=== PATIENT | male | born 1955 | race African-American/Black ===

== ENCOUNTER 2017-01-24 15:24 | Inpatient (IN) | payer OTHER ==
[~2017-01-24] VITALS: Ht 180.3 cm; Wt 129.2 kg
[2017-01-24] MEDS ORDERED: METF500T PO (16:00)
[2017-01-24] MEDS ORDERED: FLUT1SPR5 EACH NARE (16:00)
[2017-01-24] MEDS ORDERED: DIFL500T PO (16:00)
[2017-01-24] MEDS ORDERED: GABA300C5 PO (16:00)
[2017-01-24] MEDS ORDERED: LATA0.002 EACH EYE (16:00)
[2017-01-24] MEDS ORDERED: HYDR-3583 PO (16:00)
[2017-01-24] MEDS ORDERED: VITA2000 PO (16:00)
[2017-01-24] MEDS ORDERED: FURO20TA PO (16:00)
[2017-01-24] MEDS ORDERED: TRAD5TAB PO (16:00)
[2017-01-24] MEDS ORDERED: ALLO300T2 PO (16:00)
[2017-01-24] MEDS ORDERED: METH8TAB3 PO (16:00)
[2017-01-25] MEDS ORDERED: BUPIVACAINE LIPOSOME PF 1.3% 20 ML VIAL ONE (08:29)
[2017-01-25] MEDS ORDERED: POVIDONE IODINE 5% (ANTISEPSIS KIT) 4 APPLICATIONS EACH NARE PRN (08:30)
[2017-01-25] MEDS ORDERED: LACTATED RINGER'S 1000 ML IV PRN (08:30)
[2017-01-25] MEDS ORDERED: SODIUM CHLORID 0.9% 500 ML IV PRN (08:30)
[2017-01-25] MEDS ORDERED: CHLORHEXIDINE GLUCONATE 2 % 1 PACK (2 CLOTHS) TOPICAL PRN (08:30)
[2017-01-25] MEDS ORDERED: INSULIN HUMAN REGULAR 1,000 UNITS/10 ML VIAL SQ PRN (08:30)
[2017-01-25] MEDS ORDERED: METOPROLOL TARTRATE 25 MG TAB PO PRN (08:30)
[2017-01-25] MEDS ORDERED: PANT40TA3 PO (08:38)
[2017-01-25] MEDS ORDERED: EMPA1TAB PO (08:38)
[2017-01-25] MEDS ORDERED: ATOR40TA16 PO (08:38)
[2017-01-25] MEDS ORDERED: ALBI1INJ SQ (08:38)
[2017-01-25] MEDS ORDERED: TIMO0.5S30 LEFT EYE (08:38)
[2017-01-25] MEDS ORDERED: TAMS0.4C4 PO (08:41)
[2017-01-25] MEDS ORDERED: MONT10TA2 PO (08:41)
[2017-01-25] MEDS ORDERED: CARV3.12 PO (08:41)
[2017-01-25] MEDS ORDERED: ASPI325T PO ×2 (08:41→13:55)
[2017-01-25] MEDS ORDERED: DEXAMETHASONE SOD PHOS 20 MG/5 ML VIAL IV SCH (08:45)
[2017-01-25] MEDS ORDERED: POVIDONE IODINE 7.5% SCRUB 118 ML BOTTLE TOPICAL SCH (08:45)
[2017-01-25] MEDS ORDERED: ceFAZolin 2 GM PREMIX 50 ML IV SCH (08:45)
[2017-01-25] MEDS ORDERED: VANCOMYCIN 1000 MG/NS 250 ML (for <70 kg) IV SCH ×2 (08:45)
[2017-01-25] MEDS ORDERED: TRANEXAMIC ACID IV SCH ×2 (08:45→14:00)
[2017-01-25] MEDS ORDERED: ROPIVACAINE PERI-ARTICULAR INJECTION. P-ARTICULR SCH ×5 (08:45)
[2017-01-25] MEDS ORDERED: SODIUM CHLORIDE 0.9% IV SCH ×2 (08:45→14:00)
[2017-01-25 08:50] VITALS: BP 151/77; PULSE 69; RESP 20; TEMP 98.7; O2SAT 96
[2017-01-25] MEDS ORDERED: GENTAMICIN SULFATE 80 MG/2 ML VIAL ONE (10:19)
[2017-01-25] MEDS ORDERED: MIDAZOLAM HCL 2 MG/2 ML VIAL ONE (11:21)
[2017-01-25] MEDS ORDERED: FAMOTIDINE 20 MG/2 ML VIAL ONE (11:21)
[2017-01-25] MEDS ORDERED: METOCLOPRAMIDE HCL 10 MG/2 ML VIAL ONE (11:21)
[2017-01-25] MEDS ORDERED: PROPOFOL 200 MG/20 ML AMP IV ONE (13:15)
[2017-01-25] MEDS ORDERED: LACTATED RINGER'S 1000 ML INJ 2,000 ML IV ONE (13:16)
[2017-01-25] MEDS ORDERED: ONDANSETRON HCL 4 MG/2 ML VIAL IV PUSH ONE (13:16)
--- NOTE | 2017-01-25 13:53 | PD.OP ---
cc: Jose Montana MD Operative Report Date of Surgery: Jan 25, 2017 Preoperative Diagnosis: Right knee severe osteoarthritis Postoperative Diagnosis: Same Procedure: Right total knee arthroplasty Anesthesia: Adductor canal block and general Surgeon: Jose Montana Regulatory Affairs Manager(s): VAHID Roman The surgical procedure was assisted by my Advanced Registered Nurse Practitioner. My WAITER/WAITRESS TOURIST CLASS presence was necessary throughout this case for the manipulation and positioning of the surgical extremity. My WAITER/WAITRESS TOURIST CLASS was assisting me throughout the duration of this procedure. The skill set of an Advance Registered Nurse Practitioner was medically necessary to complete this procedure. During the surgical case, the surgical orderly was working at the back table and the Advance Registered Nurse Practitioner was directly assisting me. Operation and Findings: IMPLANTS: DePuy Attune: Patella: size 38. Femur, posterior stabilized size 9. Tibia, rotating platform size 7. Tibial insert, rotating platform, posterior stabilized size 7 mm thickness. ESTIMATED BLOOD LOSS: 150 cc TOURNIQUET TIME: 53 minutes at 250 mmHg pressure. JUSTIFICATION FOR PROCEDURE: The patient has end-stage osteoarthritis to the knee. There is an attached conservative measures pathway form in the chart that describes the nonoperative measures that were undertaken prior to consideration of surgical management. The patient understood the risks and benefits of surgical management. See my office notes for further details PROCEDURE: The patient was brought back to the operative theatre. Adequate anesthesia was obtained. The patient received intravenous vancomycin and Ancef. The lower extremity was prepped and draped in the usual sterile fashion.The leg was exsanguinated, the tourniquet was raised. A standard anterior incision was performed followed by medial parapatellar arthrotomy was performed. End-stage arthritis was identified. Osteotomy of the patella was performed. We drilled holes for the patella. We trialed the patella component. We placed an intramedullary guide into the distal femur. We ultimately resected 14 mm off of the distal femur in 5 degrees of valgus. The remnants of the ACL and PCL were resected. Osteotomy of the proximal tibia was performed, resecting 8 mm off of the medial side. This was done with 3 degrees of posterior slope using an extramedullary guide. The distal end of the guide was placed in the mid aspect of the ankle. The femur was sized, and four chamfer cuts were completed in 3 of external rotation. We then cut the central box in the distal femur to replace the PCL. We resected the remnants of the menisci and removed osteophytes off of the femur and tibia. We then trialed the knee. We punched the tibia for the keel, and then used standard technique to cement in components. Excess cement was removed. We trialed the knee again and the final polyethylene thickness was chosen to provide extension to 0 degrees, and flexion of 140 degrees to gravity. The ligaments were appropriately balanced. Lateral release was necessary to obtain excellent patellofemoral tracking. The tourniquet was released and adequate hemostasis was obtained. An intra- articular injection of a ropivacaine cocktail was injected. The posterior knee was inspected for excess cement, which was removed. The final polyethylene was put into position after thorough irrigation. We then closed deep fascia with a #2 Stratafix followed by skin with 2-0 Vicryl followed by pravin. Postop plan is to weight-bear as tolerated. DVT prophylaxis will be performed with Juan Daniel, BRANDON whitmore, early mobilization, and Lovenox followed by aspirin. Jose Montana MD Jan 25, 2017 13:53
[2017-01-25] MEDS ORDERED: ENOX40P SQ (13:55)
[2017-01-25] MEDS ORDERED: HYDR-3366 PO (13:55)
[2017-01-25] MEDS ORDERED: DO NOT ADM ANY ANTICOAGULANT DRUGS PRN (14:00)
[2017-01-25] MEDS ORDERED: ACETAMINOPHEN/HYDROcodone 325 MG/10 MG TAB PO PRN (14:00)
[2017-01-25] MEDS ORDERED: Post-op Orders (for Pharmacy) MISC XX ONE (14:00)
[2017-01-25] MEDS ORDERED: MORPHINE SULFATE 4 MG/ML INJ IV PUSH PRN (14:00)
[2017-01-25] MEDS ORDERED: ZOLPIDEM TARTRATE 5 MG TAB PO PRN (14:00)
[2017-01-25] MEDS ORDERED: NALOXONE HCL 0.4 MG/ML AMP IV PRN (14:00)
[2017-01-25] MEDS ORDERED: BISACODYL 10 MG SUPP RECTAL PRN (14:00)
[2017-01-25] MEDS ORDERED: ALUMINUM/MAGNESIUM/SIMETH 30 ML CUP PO PRN (14:00)
[2017-01-25] MEDS ORDERED: ONDANSETRON HCL 4 MG/2 ML VIAL IVP PRN (14:00)
[2017-01-25] MEDS ORDERED: diphenhydrAMINE HCL 50 MG/ML VIAL IV PRN (14:00)
[2017-01-25] MEDS ORDERED: SODIUM CHLORIDE 0.9% FLUSH 5 ML FLUSH IVF PRN (14:00)
[2017-01-25] MEDS ORDERED: fentaNYL CITRATE 250 MCG/5 ML AMP ONE ×2 (14:22)
[2017-01-25] MEDS ORDERED: *morphine SULFATE 8 MG/ML PERIprocedure ONLY ONE ×2 (14:26→14:39)
[2017-01-25] MEDS ORDERED: *HYDROmorphone PF 1 MG VIAL PERIprocedural Use ONLY ONE ×2 (14:54→16:17)
[2017-01-25] MEDS ORDERED: LABETALOL HCL 100 MG/20 ML VIAL ONE (14:59)
[2017-01-25] MEDS: SODIUM CHLOR 0.9% 1000 ML INJ 1,000 ML IV SCH ×2 (15:15→21:41)
--- NOTE | 2017-01-25 15:22 | RADRPT ---
EXAM DATE/TIME: 01/25/2017 14:36 [facility] COMPARISON: No previous studies available for comparison. INDICATIONS : Post op right knee surgery. MEDICAL HISTORY : None. SURGICAL HISTORY : None. ENCOUNTER: Initial ACUITY: 1 day PAIN SCORE: 8/10 LOCATION: Right Knee. FINDINGS: 2 views of the knee show a total knee prosthesis in good position. Air and fluid noted within the tequila nt. No fracture or dislocation is observed. Soft tissue swelling is noted. CONCLUSION: Total knee prosthesis in good position. Geoffrey García Jr., MD on January 25, 2017 at 15:18 Board Certified Radiologist. This report was verified electronically.
--- NOTE | 2017-01-25 15:58 | PD.CONS ---
HPI Service [facility] Hospitalists Consult Requested By Dr. Jose Montana Reason for Consult Medical Management Primary Care Physician Rachel Pizarro MD Diagnoses: History of Present Illness Mr. Frazier is a pleasant 61 y/o AAM with HTN, Hyperlipidemia, atrial fibrillation , diabetes mellitus, and osteoarthritis. Pt was admitted to [facility] on 01/25/17 for elective right total knee arthroplasty with Dr. Montana. [facility] Hospitalist team was consulted to help with managing the pts chronic medical issues. He is seen post-operatively and is doing well. Vital signs are stable. Pts chronic medications were confirmed by a list his family had brought in from home. There were no specific issues reported by nursing staff or the patient. Past Family Social History Past Medical History HTN Hyperlipidemia Atrial fibrillation BPH Diabetes mellitus, type 2 Tension headaches Glaucoma Osteoarthritis Low back pain GERD MIC on CPAP Past Surgical History Open repair of left elbow lateral epicondylar extensor tendon and lateral collateral ligament on 03/18/[address] Chang. Removal of orbital fat with closure of the conjunctival wound on 12/04/[address] Mckeon Left knee revision total knee arthroplasty [place] [address] Montana Right foot bone spur removal Ankle surgery Reported Medications -Aspirin 325 Mg PO DAILY -Singulair 10 Mg PO HS -Tamsulosin 0.4 Mg PO HS -Atorvastatin 40 Mg PO DAILY -Timolol Opth Drops 0.5 % Soln 1 Drop LEFT EYE DAILY -Jardiance 10 Mg PO DAILY -Tanzeum 4-Pack Inj 30 Mg SQ Q7D -Pantoprazole 40 Mg PO DAILY -Metformin 500 Mg PO BIDPC -Latanoprost Opth Drops (Latanoprost) 0.005% Drops 1 Drop EACH EYE HS -Flonase Nasal [place] 50 Mcg EACH NARE HS -Vitamin D3 (Cholecalciferol) 2,000 Unit Cap 2,000 Units PO DAILY -Allopurinol 300 Mg PO DAILY -Furosemide 20 Mg PO DAILY -Gabapentin 300 Mg PO BID -Carvedilol 3.125 Mg PO BID -Methylprednisolone 4 Mg PO DAILY --Oxycodone-Acetaminophen 10-325 mg Tab 1 Tab PO TID PRN Allergies: Coded Allergies: Darvon (Verified Allergy, Severe, swelling, 01/25/17) Propoxyphene (Verified Allergy, Severe, rash, 01/25/17) DARVON,DARVOCET Sulfa (Verified Allergy, Severe, SWELLING, 01/25/17) Family History Sister with hx of diabetes mellitus Social History Denies any alcohol, tobacco or illicit drug use Physical Exam Vital Signs Vital Signs Date Time Temp Pulse Resp B/P Pulse Ox O2 Delivery O2 Flow Rate FiO2 01/25/17 08:50 98.7 69 20 151/77 96 Physical Exam GENERAL: This is a well-nourished, well-developed patient, in no apparent distress. HEENT: Atraumatic. Normocephalic. No temporal or scalp tenderness. No scleral icterus. Airway patent. NECK: Trachea midline, supple, nontender. CARDIO: Regular. RESP: CTA bilaterally. No wheezes, rales, or rhonchi. ABD: +BS, soft, non-tender, nondistended. EXT: Right knee bandages are c/d/i NEURO: Awake and alert. Motor and sensory grossly within normal limits. Normal speech. Laboratory Laboratory Tests Test 01/25/17 08:34 Blood Type A POSITIVE Antibody Screen NEGATIVE Imaging Last Impressions Knee X-Ray 01/25/17 1350 Signed Impressions: Service Date/Time: Monday, January 25, 2017 14:36 - CONCLUSION: Total knee prosthesis in good position. Geoffrey García Jr., MD Assessment and Plan Problem List: (1) Osteoarthritis Status: Chronic Plan: - Pt s/p right total knee arthroplasty on 01/25/[address] Montana - Post-op pain control per Ortho - PT daily - IS - Constipation precautions - DVT prophylaxis (2) Status post total right knee replacement Status: Acute Plan: - See above. (3) HTN (hypertension) Status: Chronic Plan: - We will need clarification regarding his home medications tomorrow - Pt was resumed on Coreg 3.125mg po BID (4) Diabetes Status: Chronic Plan: - Pts listed home medications on Med Rec were resumed - Accu checks (5) Atrial fibrillation Status: Chronic Plan: - Home meds continued (6) Hyperlipidemia Status: Chronic Plan: - Home meds continued Problem Qualifiers (1) Osteoarthritis: (2) Diabetes: Suzette Hoover Jan 25, 2017 15:58 Problem Qualifiers (1) Osteoarthritis: (2) Diabetes: Suzette Hoover Jan 25, 2017 15:58
--- NOTE | 2017-01-25 16:49 | HHI.DCPOC ---
Discharge Care Plan Diagnosis: (1) Status post total right knee replacement (2) Primary localized osteoarthrosis, lower leg Your Health Problems Are: Difficulty with ADL Goals to Promote Your Health * To prevent worsening of your condition and complications * To maintain your health at the optimal level Directions to Meet Your Goals Take your medications as prescribed Follow your dietary instruction Follow activity as directed Keep your appointments as scheduled Take your immunizations and boosters as scheduled If your symptoms worsen call your PCP, if no PCP go to Urgent Care Center or Emergency Room Smoking is Dangerous to Your Health. Avoid second hand smoke Call the 24-hour hour crisis hotline for domestic abuse at Tl Young Jan 25, 2017 16:49
--- NOTE | 2017-01-25 16:50 | HHI.FF ---
Face to Face Verification Diagnosis: (1) Status post total right knee replacement (2) Primary localized osteoarthrosis, lower leg Physical Therapy Gait training, Transfer training, bed to chair Knee: Total knee Right LE Weight Bearing: WB as tolerated Right LE Range of Motion: Active ROM Nursing Nursing: Rena teaching, Dressing changes Dressing Changes: Daily dressing change I have seen patient Alexander Frazier on 01/25/17. My clinical findings support the need for the requested home health care services because: Limited ability to care for self High risk of falls I certify that my clinical findings support that this patient is homebound because: Post-op weakness Unsteady gait/balance Tl Young Jan 25, 2017 16:50
[2017-01-25] MEDS ORDERED: CPMMACHINE (16:52)
[2017-01-25] MEDS ORDERED: WALKER WHEELS/F1 MIS (16:52)
[2017-01-25] MEDS ORDERED: COMMODE 3-IN-11 MIS (16:52)
[2017-01-25 17:05] VITALS: BP 172/80; PULSE 73; RESP 18; TEMP 97.5; O2SAT 96
[2017-01-25] MEDS: ACETAMINOPHEN/HYDROcodone 325 MG/10 MG TAB PO PRN ×2 (17:21→21:39)
[2017-01-25] MEDS: metFORMIN HCL 500 MG TAB PO SCH (17:21)
[2017-01-25] MEDS ORDERED: GLUCAGON 1 MG/ML VIAL OTHER PRN (17:30)
[2017-01-25] MEDS ORDERED: DEXTROSE 50% IN WATER 50 ML VIAL(D50) IV PUSH PRN (17:30)
[2017-01-25 20:00] VITALS: BP 147/69; PULSE 70; RESP 18; TEMP 97.7; O2SAT 98
[2017-01-25 20:43] VITALS: O2SAT 94
[2017-01-25] MEDS ORDERED: DIFLUNISAL 500 MG PO SCH (21:00)
[2017-01-25] MEDS: SODIUM CHLORIDE 0.9% FLUSH 5 ML FLUSH IVF SCH (21:00)
[2017-01-25] MEDS: INSULIN ASPART SUPPLEMENTAL SCALE SQ SCH (21:38)
[2017-01-25] MEDS: MAGNESIUM HYDROXIDE SUSP 30 ML CUP PO PRN (21:38)
[2017-01-25] MEDS: CARVEDILOL 3.125 MG TAB PO SCH (21:38)
[2017-01-25] MEDS: GABAPENTIN 300 MG CAP PO SCH (21:38)
[2017-01-25] MEDS: TAMSULOSIN HCL 0.4 MG CAP PO SCH (21:39)
[2017-01-25] MEDS: MONTELUKAST SODIUM 10 MG TAB PO SCH (21:39)
[2017-01-25] MEDS: LATANOPROST 0.005% OPHT SOLN 2.5 ML BTL EACH EYE SCH (21:40)
[2017-01-26] VITALS (7 sets, daily range): BP systolic 125–142; BP diastolic 61–70; PULSE 61–70; RESP 18–19; TEMP 96.3–98.1; O2SAT 93–97
[2017-01-26] MEDS: ACETAMINOPHEN/HYDROcodone 325 MG/10 MG TAB PO PRN ×5 (02:44→21:41)
[2017-01-26 06:15] LABS: HEMATOCRIT 33.8 % (39.0-51.0); MEAN CORPUSCULAR HEMOGLOBIN 30.5 PG (27.0-34.0); MEAN CORPUSCULAR HGB CONC 33.8 % (32.0-36.0); PLATELET COUNT 203 TH/MM3 (150-450); RED BLOOD COUNT 3.75 MIL/MM3 (4.50-5.90); RED CELL DISTRIBUTION WIDTH 14.4 % (11.6-17.2); REVIEW FLAG FINAL; WHITE BLOOD COUNT 11.2 TH/MM3 (4.0-11.0)
[2017-01-26] MEDS: INSULIN ASPART SUPPLEMENTAL SCALE SQ SCH ×4 (06:33→21:49)
[2017-01-26] MEDS ORDERED: DEXAMETHASONE SOD PHOS 20 MG/5 ML VIAL IV ONE (07:45)
[2017-01-26] MEDS ORDERED: EMPAGLIFLOZIN 10 MG PO SCH (09:00)
[2017-01-26] MEDS: SODIUM CHLORIDE 0.9% FLUSH 5 ML FLUSH IVF SCH ×2 (09:00→21:00)
[2017-01-26] MEDS ORDERED: LINAGLIPTIN 5 MG PO SCH (09:00)
[2017-01-26] MEDS: SODIUM CHLOR 0.9% 1000 ML INJ 1,000 ML IV SCH ×2 (09:50→19:50)
[2017-01-26] MEDS: GABAPENTIN 300 MG CAP PO SCH ×2 (09:56→21:39)
[2017-01-26] MEDS: metFORMIN HCL 500 MG TAB PO SCH ×2 (09:56→17:12)
[2017-01-26] MEDS: ALLOPURINOL 300 MG TAB PO SCH (09:56)
[2017-01-26] MEDS: TIMOLOL MALEATE 0.5% OPHT SOLN 5 ML BTL LEFT EYE SCH (09:56)
[2017-01-26] MEDS: MAGNESIUM HYDROXIDE SUSP 30 ML CUP PO PRN (09:56)
[2017-01-26] MEDS: CARVEDILOL 3.125 MG TAB PO SCH ×2 (09:56→21:40)
[2017-01-26] MEDS: FUROSEMIDE 20 MG TAB PO SCH (09:56)
[2017-01-26] MEDS: ATORVASTATIN 40 MG TAB PO SCH (09:56)
[2017-01-26] MEDS: PANTOPRAZOLE SOD 40 MG DELAYED RELEASE TAB PO SCH (09:56)
--- NOTE | 2017-01-26 12:20 | PD.ORT.PN ---
Subjective Post Op Day #: 1 Subjective Remarks Patient OOB resting comfortably in chair with mild pain to the right thigh and knee. Patient has been ambulatory and is voiding. Objective Vitals Vital Signs Date Time Temp Pulse Resp B/P Pulse Ox O2 Delivery O2 Flow Rate FiO2 01/26/17 08:00 97.4 62 19 127/64 97 01/26/17 03:58 98.1 62 18 136/61 96 01/26/17 00:00 96.3 67 18 129/64 97 01/25/17 20:43 94 Nasal Cannula 2.00 01/25/17 20:00 97.7 70 18 147/69 98 01/25/17 19:05 Nasal Cannula 2.00 01/25/17 17:05 97.5 73 18 172/80 96 01/25/17 16:19 78 18 176/80 96 Room Air 01/25/17 15:15 71 18 176/84 98 Nasal Cannula 2 01/25/17 15:00 75 18 186/86 98 Nasal Cannula 2 01/25/17 14:45 74 18 193/84 99 Nasal Cannula 2 01/25/17 14:30 66 18 159/77 99 Nasal Cannula 2 01/25/17 14:10 98.2 67 18 160/78 100 Nasal Cannula 5 I/O 01/25/17 01/25/17 01/25/17 01/26/17 01/26/17 01/26/17 07:00 15:00 23:00 07:00 15:00 23:00 Intake Total 1600 ml 1143 ml 360 ml Output Total 150 ml 450 ml 500 ml Balance 1450 ml 693 ml -140 ml Intake IV Total 1143 ml 360 ml Other 1600 ml Output Urine Total 0 ml 450 ml 500 ml Estimated Blood Loss 150 ml # Bowel Movements 0 0 Result Diagram: 01/26/17 0545 Imaging Last 24 hours Impressions Knee X-Ray 01/25/17 1350 Signed Impressions: Service Date/Time: Wednesday, January 25, 2017 14:36 - CONCLUSION: Total knee prosthesis in good position. Geoffrey García Jr., MD Procedures Right TKA Objective Remarks Dressings C/D/I. EHL/TA/G intact. 2+ pedal pulse. Calf is mildly tender. Minimal swelling. + SILT. Assessment & Plan Ortho Post Op Day #: 1 Problem List: Assessment and Plan POD #1: Right TKA 1. WBAT RLE 2. Lovenox for DVT prophylaxis 3. Ice to the right knee PRN 4. Plan is for discharge to SNF on Monday 5. F/U with Dr. Montana in 1-2 weeks. 6. Reevaluate calf soreness if continuing we will order an US to r/o DVT. Patient will notify nurse if calf pain increases. Tl Young Jan 26, 2017 12:20
[2017-01-26] MEDS: ENOXAPARIN SODIUM 40 MG/0.4 ML SYRINGE SQ SCH (13:27)
[2017-01-26] MEDS: MULTIVITAMINS/MINERALS THERAPEUTIC TAB PO SCH (21:39)
[2017-01-26] MEDS: DOCUSATE SODIUM 100 MG CAP PO SCH (21:39)
[2017-01-26] MEDS: MONTELUKAST SODIUM 10 MG TAB PO SCH (21:40)
[2017-01-26] MEDS: TAMSULOSIN HCL 0.4 MG CAP PO SCH (21:40)
[2017-01-26] MEDS: LATANOPROST 0.005% OPHT SOLN 2.5 ML BTL EACH EYE SCH (21:50)
[2017-01-27 00:10] VITALS: BP 124/66; PULSE 66; RESP 18; TEMP 96.7; O2SAT 96
[2017-01-27] MEDS: SODIUM CHLOR 0.9% 1000 ML INJ 1,000 ML IV SCH (05:50)
[2017-01-27] MEDS: ACETAMINOPHEN/HYDROcodone 325 MG/10 MG TAB PO PRN ×2 (06:06→12:21)
[2017-01-27] MEDS: INSULIN ASPART SUPPLEMENTAL SCALE SQ SCH ×2 (06:11→11:00)
[2017-01-27 06:57] LABS: HEMATOCRIT 30.4 % (39.0-51.0); MEAN CELL VOLUME 89.9 FL (80.0-100.0); MEAN CORPUSCULAR HEMOGLOBIN 30.9 PG (27.0-34.0); MEAN CORPUSCULAR HGB CONC 34.4 % (32.0-36.0); PLATELET COUNT 184 TH/MM3 (150-450); RED BLOOD COUNT 3.38 MIL/MM3 (4.50-5.90); RED CELL DISTRIBUTION WIDTH 14.3 % (11.6-17.2); REVIEW FLAG FINAL; WHITE BLOOD COUNT 8.5 TH/MM3 (4.0-11.0)
[2017-01-27 08:55] VITALS: BP 126/81; PULSE 58; RESP 14; TEMP 98.5; O2SAT 95
[2017-01-27] MEDS: TIMOLOL MALEATE 0.5% OPHT SOLN 5 ML BTL LEFT EYE SCH (09:00)
[2017-01-27] MEDS ORDERED: methylPREDNISolone 4 MG TAB PO SCH (09:00)
[2017-01-27] MEDS: SODIUM CHLORIDE 0.9% FLUSH 5 ML FLUSH IVF SCH (09:00)
[2017-01-27] MEDS: MAGNESIUM HYDROXIDE SUSP 30 ML CUP PO PRN (10:43)
[2017-01-27] MEDS: MULTIVITAMINS/MINERALS THERAPEUTIC TAB PO SCH (10:44)
[2017-01-27] MEDS: ATORVASTATIN 40 MG TAB PO SCH (10:44)
[2017-01-27] MEDS: FUROSEMIDE 20 MG TAB PO SCH (10:44)
[2017-01-27] MEDS: ALLOPURINOL 300 MG TAB PO SCH (10:45)
[2017-01-27] MEDS: PANTOPRAZOLE SOD 40 MG DELAYED RELEASE TAB PO SCH (10:45)
[2017-01-27] MEDS: GABAPENTIN 300 MG CAP PO SCH (10:46)
[2017-01-27] MEDS: metFORMIN HCL 500 MG TAB PO SCH (10:46)
[2017-01-27] MEDS: CARVEDILOL 3.125 MG TAB PO SCH (10:46)
[2017-01-27] MEDS: DOCUSATE SODIUM 100 MG CAP PO SCH (10:46)
[2017-01-27] MEDS: ENOXAPARIN SODIUM 40 MG/0.4 ML SYRINGE SQ SCH (12:22)
--- NOTE | 2017-01-27 12:45 | RADRPT ---
EXAM DATE/TIME: 01/27/2017 11:57 [facility] COMPARISON: No previous studies available for comparison. INDICATIONS : Right leg pain. MEDICAL HISTORY : Diabetes mellitus type 2. Hypertension. Rheumatoid arthritis. Asthma. Gout. Measles. A-flutter. SURGICAL HISTORY : Total knee replacement, left. Cardiac catheterization. Bilateral knee arthroscopy. left ankle torn ligament. ENCOUNTER: Initial ACUITY: 3 days PAIN SCORE: 3/10 LOCATION: Right leg. TECHNIQUE: Venous ultrasound of the leg was performed from the inguinal ligament to the proximal calf. Real-mariia e, color Doppler and spectral tracing, compression and augmentation techniques were used. FINDINGS: There is normal compressibility of the deep venous system from the inguinal region to the proximal ca lf. No echogenic clot is seen in the lumen of the common femoral, femoral, popliteal, and posterior tibial veins. There is a normal response of the venous system to proximal and distal augmentation an d respiration. CONCLUSION: Negative for thrombosis. Mann Haines MD FACR on January 27, 2017 at 12:43 Board Certified Radiologist. This report was verified electronically.
--- NOTE | 2017-01-27 13:16 | PD.ORT.PN ---
Subjective Subjective Remarks c/o pain but controlled. walking fairly well Objective Vitals Vital Signs Date Time Temp Pulse Resp B/P Pulse Ox O2 Delivery O2 Flow Rate FiO2 01/27/17 08:55 98.5 58 14 126/81 95 01/27/17 00:10 96.7 66 18 124/66 96 01/26/17 20:10 97.1 61 18 125/68 95 01/26/17 16:00 97.4 68 19 142/69 93 I/O 01/26/17 01/26/17 01/26/17 01/27/17 01/27/17 01/27/17 07:00 15:00 23:00 07:00 15:00 23:00 Intake Total 360 ml 1200 ml 480 ml Output Total 500 ml 1600 ml 500 ml Balance -140 ml -400 ml -20 ml Intake Oral 1200 ml 480 ml IV Total 360 ml Output Urine Total 500 ml 1600 ml 500 ml # Bowel Movements 0 0 0 Result Diagram: 01/27/17 0551 Imaging Last 24 hours Impressions Knee X-Ray 01/25/17 1350 Signed Impressions: Service Date/Time: Wednesday, January 25, 2017 14:36 - CONCLUSION: Total knee prosthesis in good position. Geoffrey García Jr., MD U/S neg for clot Procedures Right TKA Objective Remarks Dressings changed. Incision is C/D/I. EHL/TA/G intact. 2+ pedal pulse. Calf is mildly tender. Minimal swelling. + SILT. Assessment & Plan Assessment and Plan POD #2: Right TKA 1. WBAT RLE 2. Lovenox for DVT prophylaxis 3. Ice to the right knee PRN 4. Plan is for discharge to [facility] today 5. F/U with Dr. Montana in 1-2 weeks. 6. U/S negative for DVT Jose Montana MD Jan 27, 2017 13:16
[2017-01-27 17:00] VITALS: BP 126/65; PULSE 64; RESP 18; TEMP 98.7; O2SAT 95
--- NOTE | 2017-01-30 22:31 | HHI.DS ---
Discharge Summary Admission Date Jan 25, 2017 at 07:36 Discharge Date: Jan 27, 2017 Admitting Diagnosis primary localized OA, lower leg Status post total knee replacement, right Diagnosis: (1) Primary localized osteoarthrosis, lower leg Diagnosis: Principal (2) Status post total right knee replacement Diagnosis: Principal Procedures Right TKA Brief History This is a 61 year old male patient with severe OA of the right knee. CBC/BMP: 01/27/17 0551 PE at Discharge Dressings changed. Incision is C/D/I. EHL/TA/G intact. 2+ pedal pulse. Calf is mildly tender. Minimal swelling. + SILT. Hospital Course The patient was admitted to the hospital for severe OA of the right knee to have a right TKA. The patient tolerated the procedure well with no complications. The patient is WBAT. The patient was placed on Lovenox followed by ASA post op for DVT prophylaxis. The patient is on a diabetic diet. The patient will f/u with Dr. Montana in 1-2 weeks. The patient is discharged to a SNF. Pt Condition on Discharge: Stable Discharge Disposition: Rehab Inpatient Discharge Instructions Diet Instructions: Diabetic Diet Activities You Can Perform: Weight Bearing as [place] Activities to Avoid: Strenuous Activity Follow up Referrals: Orthopedics with Jose Montana MD New Medications: Aspirin (Aspirin) 325 Mg Tab 325 MG PO DAILY Start Aspirin after Lovenox is completed. Prevent Blood Clot # 30 Ref 0 TAB Commode 3-in-1 (Commode 3-in-1) 1 Mis Mis 1 EA .ROUTE DIRECTED #1 Ref 0 EA CPM-Continuous Passive Motion Machine (CPM-Continuous Passive Motion Machine) 1 Ea Device 1 EA .ROUTE DIRECTED #1 Ref 0 EA Enoxaparin Inj (Lovenox Inj) 40 Mg/0.4 Ml Syr 40 MG SQ DAILY Start Aspirin after Lovenox is completed. Blood Clot Prevention # 10 Ref 0 SYRINGE Hydrocodone-Acetaminophen (Sprague) 10-325 Mg Tab 1-2 TAB PO Q4H PRN PAIN #60 Ref 0 TAB Walker with Front Wheels (Walker with Front Wheels) 1 Mis Mis 1 EA .ROUTE DIRECTED #1 Ref 0 EA Continued Medications: Albiglutide 4-Pack Inj (Tanzeum 4-Pack Inj) 30 Mg Pfpen 30 MG SQ Q7D #4 PEN Allopurinol (Allopurinol) 300 Mg Tab 300 MG PO DAILY Gout #30 Ref 0 TAB Atorvastatin (Atorvastatin) 40 Mg Tab 40 MG PO DAILY Cholesterol Management #30 Ref 0 TAB Carvedilol (Carvedilol) 3.125 Mg Tab 3.125 MG PO BID #60 Ref 0 TAB Cholecalciferol (Vitamin D3) 2,000 Unit Cap 2000 UNITS PO DAILY Nutritional Supplement #56 Ref 0 CAP Empagliflozin (Jardiance) 10 Mg Tab 10 MG PO DAILY Blood Sugar Management #30 Ref 0 TAB Fluticasone Nasal [place] (Flonase Nasal [place]) 50 Mcg/Act [place] 50 MCG EACH NARE HS Allergies #1 Ref 0 BOTTLE Furosemide (Furosemide) 20 Mg Tab 20 MG PO DAILY #30 Ref 0 TAB Gabapentin (Gabapentin) 300 Mg Cap 300 MG PO BID #60 Ref 0 CAP Latanoprost Opth Drops (Latanoprost Opth Drops) 0.005% Drops 1 DROP EACH EYE HS Refrigerate until opened. Glaucoma #2.5 Ref 0 ML Metformin (Metformin) 500 Mg Tab 500 MG PO BIDPC With meals Blood Sugar Management #60 Ref 0 TAB Methylprednisolone (Methylprednisolone) 8 Mg Tab 4 MG PO DAILY Ref 0 TAB Montelukast (Singulair) 10 Mg Tab 10 MG PO HS #30 Ref 0 TAB Pantoprazole (Pantoprazole) 40 Mg Tab 40 MG PO DAILY Reflux #30 Ref 0 TAB Tamsulosin (Tamsulosin) 0.4 Mg Cap 0.4 MG PO HS Manage Prostate Problems #30 Ref 0 CAP Timolol Opth Drops (Timolol Opth Drops) 0.5 % Soln 1 DROP LEFT EYE DAILY Glaucoma #1 Ref 0 BOTTLE Discontinued Medications: Aspirin (Aspirin) 325 Mg Tab 325 MG PO DAILY #30 Ref 0 TAB Hydrocodone-Acetaminophen (Hydrocodone-Acetaminophen) 10-325 mg Tab 1 TAB PO TID PRN PAIN Ref 0 TAB Tl Young Jan 30, 2017 22:31
[2017-02-01] MEDS ORDERED: ALBIGLUTIDE SQ SCH (07:00)
[2017-02-09] MEDS ORDERED: Tub Transfer Bench (11:09)
[2017-02-09] MEDS ORDERED: WHEEMIS3 (11:09)
[2017-02-14] MEDS ORDERED: TIMO0.5S30 LEFT EYE (14:17)
[2017-02-14] MEDS ORDERED: METF500T PO (14:17)
[2017-02-14] MEDS ORDERED: ASPI325T PO ×2 (14:17→14:21)
[2017-02-14] MEDS ORDERED: METH8TAB3 PO (14:17)
[2017-02-14] MEDS ORDERED: CARV3.12 PO (14:17)
[2017-02-14] MEDS ORDERED: ALLO300T2 PO (14:17)
[2017-02-14] MEDS ORDERED: OXYC-392 PO (14:17)
[2017-02-14] MEDS ORDERED: MONT10TA2 PO (14:17)
[2017-02-14] MEDS ORDERED: ATOR40TA16 PO (14:17)
[2017-02-14] MEDS ORDERED: SENN1TAB PO (14:17)
[2017-02-14] MEDS ORDERED: PANT40TA3 PO (14:17)
[2017-02-14] MEDS ORDERED: TAMS0.4C4 PO (14:17)
[2017-02-14] MEDS ORDERED: FURO20TA PO (14:17)
[2017-02-14] MEDS ORDERED: LATA0.002 EACH EYE (14:17)
[2017-02-14] MEDS ORDERED: VITA2000 PO (14:17)
[2017-02-14] MEDS ORDERED: PREG25 PO (14:17)
== END 2017-01-27 15:58 | DRG 470 ==
LOC: HSDI 01-25 07:36 → N06B 01-25 16:27
PROVIDERS: ADMIT Orthopaedic Surgery; ATTEND Orthopaedic Surgery
PROC: 0SRC0J9 Replacement of Right Knee Joint with Synthetic Substitute, Cemented, Open Approach (ICD-10-PCS; principal; 2017-01-25 11:34)
DX: M17.11 Unilateral primary osteoarthritis, right knee (principal); I10 Essential (primary) hypertension; I48.91 Unspecified atrial fibrillation; E11.9 Type 2 diabetes mellitus without complications; E78.5 Hyperlipidemia, unspecified; G47.33 Obstructive sleep apnea (adult) (pediatric); K21.9 Gastro-esophageal reflux disease without esophagitis; N40.0 Benign prostatic hyperplasia without lower urinary tract symptoms; H40.9 Unspecified glaucoma; Z96.652 Presence of left artificial knee joint
CPT/HCPCS: 73560; 82948; 85027; 86850; 86900; 86901; 93971; 94150; C1776; C9290; J0171; J0690; J0735; J1100; J1170; J1580; J1650; J1815; J1885; J2250; J2270; J2405; J2765; J2795; J3010; J3370; J7030; J7050; J7120; J7509; L1830

== ENCOUNTER → 2017-03-24 | Outpatient (CLI) | payer OTHER ==
[~2017-03-24] MED LIST: ALLO300T2 PO; ASPI325T PO; ATOR40TA16 PO; CARV3.12 PO; COMMODE 3-IN-11 MIS; CPMMACHINE; FURO20TA PO; LATA0.002 EACH EYE; METF500T PO; METH8TAB3 PO; MONT10TA2 PO; OXYC-392 PO; PANT40TA3 PO; PREG25 PO; SENN1TAB PO; TAMS0.4C4 PO; TIMO0.5S30 LEFT EYE; Tub Transfer Bench; VITA2000 PO; WALKER WHEELS/F1 MIS; WHEEMIS3
--- NOTE | 2017-03-24 14:00 | RADRPT ---
EXAM DATE/TIME: 03/24/2017 13:06 [facility] COMPARISON: No previous studies available for comparison. INDICATIONS : Right leg swelling. MEDICAL HISTORY : Hypertension. A-Flutter. Sleep apnea. Asthma. GERD. Ulcer. Rheumatiod arthritis. Diabetes. SURGICAL HISTORY : Cardiac cath. Bilateral knee arthroscopy. Left total knee replacement. ENCOUNTER: Initial ACUITY: 1 day PAIN SCORE: 0/10 LOCATION: Right leg. TECHNIQUE: Venous ultrasound of the leg was performed from the inguinal ligament to the proximal calf. Real-mariia e, color Doppler and spectral tracing, compression and augmentation techniques were used. FINDINGS: There is normal compressibility of the deep venous system from the inguinal region to the proximal ca lf. No echogenic clot is seen in the lumen of the common femoral, femoral, popliteal, and posterior tibial veins. There is a normal response of the venous system to proximal and distal augmentation an d respiration. CONCLUSION: No DVT is identified within the right lower extremity. Lamberto Bhatia MD on March 24, 2017 at 13:59 Board Certified Radiologist. This report was verified electronically.
== END ==
LOC: HRAD 12:47
PROVIDERS: ATTEND Nurse Practitioner Family
DX: R22.41 Localized swelling, mass and lump, right lower limb (principal); M79.89 Other specified soft tissue disorders
CPT/HCPCS: 93971